=== PATIENT | female | born 1950 | race Caucasian/White ===

== ENCOUNTER 2017-06-21 15:12 | Emergency (ER) | payer MEDICARE, MEDICAID ==
[~2017-06-21] VITALS: Ht 165.1 cm; Wt 99.8 kg
[2017-06-21 15:42] VITALS: BP 196/63
[2017-06-21] MEDS ORDERED: Sodium Chloride 500ML 500 ML IV ONE (15:48)
[2017-06-21 16:45] LABS: BASOPHILS % (AUTO) 0.7 % (0.0-2.0); EOSINOPHILS % (AUTO) 3.2 % (0.0-3.0); HEMATOCRIT 37.9 % (37.0-47.0); HEMOGLOBIN 13.5 G/DL (12.0-16.0); LYMPHOCYTES % (AUTO) 26.3 % (20.0-45.0); MEAN CORPUSCULAR VOLUME 86 FL (80-99); NEUTROPHILS % (AUTO) 61.8 % (45.0-75.0); PLATELET COUNT 223 K/UL (150-450); RED CELL DISTRIBUTION WIDTH 11.2 % (11.6-14.8)
[2017-06-21 16:49] LABS: APPEARANCE,URINE CLOUDY; BILIRUBIN, URINE NEGATIVE (NEGATIVE); GLUCOSE, URINE (UA) NEGATIVE (NEGATIVE); KETONES,URINE NEGATIVE (NEGATIVE); LEUKOCYTE ESTERASE ,URINE 1+ (NEGATIVE); NITRITE,URINE NEGATIVE (NEGATIVE); PH,URINE 7 (4.5-8.0); PROTEIN,URINE 2+ (NEGATIVE); UROBILINOGEN,URINE NORMAL MG/DL (0.0-1.0)
[2017-06-21 16:54] LABS: COLOR,URINE AMBER
[2017-06-21 16:57] LABS: ANION GAP 5 mmol/L (5-15); BLOOD UREA NITROGEN 17 mg/dL (7-18); CALCIUM 10.4 MG/DL (8.5-10.1); CARBON DIOXIDE 30 MMOL/L (21-32); CHLORIDE 107 MMOL/L (98-107); POTASSIUM 3.7 MMOL/L (3.5-5.1); SODIUM 142 MMOL/L (136-145)
[2017-06-21 17:03] LABS: ALANINE AMINOTRANSFERASE 42 U/L (12-78); ALBUMIN 3.5 G/DL (3.4-5.0); ALBUMIN/GLOBULIN RATIO 0.9 (1.0-2.7); ALKALINE PHOSPHATASE 60 U/L (46-116); ASPARTATE AMINO TRANSFERASE 30 U/L (15-37); BILIRUBIN,TOTAL 0.4 MG/DL (0.2-1.0)
[2017-06-21 17:14] LABS: INR 0.9 (0.9-1.1)
[2017-06-21 18:35] VITALS: BP 154/74
[2017-06-21] MEDS ORDERED: PLAVIX75 MG ORAL (18:35)
[2017-06-21] MEDS ORDERED: METOPROLOL SUCC25 MG ORAL (18:35)
[2017-06-21] MEDS ORDERED: PRAVACHOL40 MG ORAL (18:35)
[2017-06-21] MEDS ORDERED: LISINOPRIL-HCT1 EAC2 ORAL (18:35)
[2017-06-21] MEDS ORDERED: ASPIR 8181 MG ORAL (18:35)
--- NOTE | 2017-06-21 18:54 | Emergency Room Report ---
History of Present Illness General Chief Complaint: General Complaint Source: Patient Present Illness HPI Patient is a 67-year-old female presented after increased abdominal pain associated with some diarrhea. Patient recent antibiotic use. Patient was noted to have recent hospitalization at outside facility where she had CT imaging performed. Patient was noted to have increased generalized abdominal pain and distention. She denies any fever. She reports having diarrhea. Allergies: Coded Allergies: No Known Allergies (Unverified , 06/21/17) Patient History Past Medical History: see triage record Reviewed Nursing Documentation: PMH: Agreed; PSxH: Agreed Nursing Documentation-PMH Past Medical History: No History, Except For Hx Cardiac Problems: Yes - Stents, heart attack in 2007 Hx Hypertension: Yes - Knee replacement Hx Pacemaker: No Hx Asthma: No Hx COPD: No Hx Diabetes: No Hx Cancer: No Hx Gastrointestinal Problems: No History Of Psychiatric Problem: No Hx Neurological Problems: No Hx Cerebrovascular Accident: No Hx Seizures: No Review of Systems All Other Systems: negative except mentioned in HPI Physical Exam Vital Signs Date Time Temp Pulse Resp B/P (MAP) Pulse Ox O2 Delivery O2 Flow Rate FiO2 06/21/17 15:19 98.1 73 16 196/63 94 Room Air 98.1 Sp02 EP Interpretation: reviewed, normal General Appearance: normal inspection, well appearing, no apparent distress, alert, GCS 15 Head: atraumatic ENT: normal ENT inspection, hearing grossly normal, normal voice Neck: normal inspection, full range of motion, supple, no bony tend Respiratory: normal inspection, lungs clear, normal breath sounds, no respiratory distress, no retraction, no wheezing Cardiovascular #1: regular rate, rhythm, no edema Gastrointestinal: normal inspection, normal bowel sounds, non tender, soft, no guarding, no hernia Genitourinary: no CVA tenderness, ext genitalia/vag normal, other - slight bleeding from os, no definite lesion seen Musculoskeletal: normal inspection, back normal, normal range of motion Neurologic: normal inspection, alert, oriented x3, responsive, speech normal Psychiatric: normal inspection, judgement/insight normal, mood/affect normal Skin: normal inspection, normal color, no rash Medical Decision Making Diagnostic Impression: Primary Impression: Nephritis Additional Impressions: Abnormal uterine bleeding Cervical cyst Fibroid ER Course Patient presented for abdominal pain. Differential diagnoses included ischemic bowel, appendicitis, perforated viscus, abdominal aortic aneurysm, inferior myocardial infarction, viral gastroenteritis, C. difficile colitis. Because of complexity of patient's case laboratory testing and imaging studies were ordered. Patient was noted to have prior history of recent antibiotic use as well as prior nephrectomy CT of abdomen pelvis showed evidence of nonspecific inflammation of the left kidney with mild left hydronephrosis versus parapelvic cysts there is no stone noted possible uterine fibroids were noted. Patient was noted to have some vaginal bleeding and was advised to have endometrial biopsy performed with MANAGER SQL follow-up. The patient is advised to follow-up with general surgery for evaluation of possible cholecystectomy Labs Test 06/21/17 16:28 White Blood Count 8.0 K/UL (4.8-10.8) Red Blood Count 4.40 M/UL (4.20-5.40) Hemoglobin 13.5 G/DL (12.0-16.0) Hematocrit 37.9 % (37.0-47.0) Mean Corpuscular Volume 86 FL (80-99) Mean Corpuscular Hemoglobin 30.6 PG (27.0-31.0) Mean Corpuscular Hemoglobin Concent 35.5 G/DL (32.0-36.0) Red Cell Distribution Width 11.2 % (11.6-14.8) Platelet Count 223 K/UL (150-450) Mean Platelet Volume 8.9 FL (6.5-10.1) Neutrophils (%) (Auto) 61.8 % (45.0-75.0) Lymphocytes (%) (Auto) 26.3 % (20.0-45.0) Monocytes (%) (Auto) 8.0 % (1.0-10.0) Eosinophils (%) (Auto) 3.2 % (0.0-3.0) Basophils (%) (Auto) 0.7 % (0.0-2.0) Prothrombin Time 9.6 SEC (9.30-11.50) Prothromb Time International Ratio 0.9 (0.9-1.1) Activated Partial Thromboplast Time 23 SEC (23-33) Urine Color Jael Urine Appearance Cloudy Urine pH 7 (4.5-8.0) Urine Specific [place] 1.010 (1.005-1.035) Urine Protein 2+ (NEGATIVE) Urine Glucose (UA) Negative (NEGATIVE) Urine Ketones Negative (NEGATIVE) Urine Occult Blood 5+ (NEGATIVE) Urine Nitrite Negative (NEGATIVE) Urine Bilirubin Negative (NEGATIVE) Urine Ictotest Negative Urine Urobilinogen Normal MG/DL (0.0-1.0) Urine Leukocyte Esterase 1+ (NEGATIVE) Urine RBC Tntc /HPF (0 - 2) Urine WBC 0-2 /HPF (0 - 2) Urine Squamous Epithelial Cells Occasional /LPF Urine Bacteria Few /HPF (NONE) Sodium Level 142 MMOL/L (136-145) Potassium Level 3.7 MMOL/L (3.5-5.1) Chloride Level 107 MMOL/L (98-107) Carbon Dioxide Level 30 MMOL/L (21-32) Anion Gap 5 mmol/L (5-15) Blood Urea Nitrogen 17 mg/dL (7-18) Creatinine 1.0 MG/DL (0.55-1.30) Estimat Glomerular Filtration Rate 55.3 mL/min (>60) Glucose Level 111 MG/DL (74-106) Calcium Level 10.4 MG/DL (8.5-10.1) Total Bilirubin 0.4 MG/DL (0.2-1.0) Aspartate Amino Transf (AST/SGOT) 30 U/L (15-37) Alanine Aminotransferase (ALT/SGPT) 42 U/L (12-78) Alkaline Phosphatase 60 U/L (46-116) Troponin I 0.000 ng/mL (0.000-0.056) Total Protein 7.2 G/DL (6.4-8.2) Albumin 3.5 G/DL (3.4-5.0) Globulin 3.7 g/dL Albumin/Globulin Ratio 0.9 (1.0-2.7) Lipase 135 U/L (73-393) Last Vital Signs Date Time Temp Pulse Resp B/P (MAP) Pulse Ox O2 Delivery O2 Flow Rate FiO2 06/21/17 18:35 98.1 68 14 154/74 100 Room Air 98.1 Status: improved Disposition: HOME, SELF-CARE Condition: Stable Scripts Dicyclomine Hcl* (DICYCLOMINE HCL*) 10 Mg Capsule 10 MG PO QID for pain, #20 CAP Prov: Guillermo Emanuel 06/21/17 Cephalexin* (KEFLEX*) 500 Mg Capsule 500 MG ORAL Q6H, #28 CAP 0 Refills Prov: Guillermo Emanuel 06/21/17 Guillermo Emanuel Jun 21, 2017 18:54
[2017-06-21] MEDS ORDERED: KEFLEX500 MG ORAL (18:56)
[2017-06-21] MEDS ORDERED: DICYCLOMINE HCL10 MG PO (18:57)
[2017-06-21 19:53] VITALS: BP 139/89
[2017-06-21 20:29] VITALS: BP 139/89
--- NOTE | 2017-06-22 09:26 | Diagnostic Imaging Report ---
Indication: Abdominal pain Technique: Spiral acquisitions obtained through the abdomen and pelvis. Patient given oral contrast. No IV contrast utilized, per referring physician request.. Multiplanar reconstructions were generated. Total dose length product 1041.29 mGycm. CTDIvol(s) 19.75 mGy. Dose reduction achieved using automated exposure control Comparison: None Findings: There are colonic diverticula. No evidence of diverticulitis. The appendix is normal. No small bowel distention. No small bowel wall thickening. No free or loculated intraperitoneal air or fluid is evident. Distal esophagus, stomach, duodenum are unremarkable. The gallbladder contains numerous sizable gallstones. The gallbladder wall is not thickened. The liver, bile ducts, pancreas, spleen, adrenals are unremarkable. The right kidney is surgically absent. There are surgical clips in the nephrectomy bed. No evidence of recurrent tumor.. The left kidney demonstrates a 2.6 cm cyst in the interpolar region. There are also multiple small parapelvic cysts. There is considerable perinephric fat stranding. No renal or ureteral calculi, hydronephrosis, or hydroureter. The uterus and ovaries appear unremarkable. No pelvic mass or adenopathy. No retroperitoneal or mesenteric mass or adenopathy. The lung bases demonstrate posterior dependent atelectatic changes. The bones demonstrate degenerative spondylosis changes. Injection granulomata are seen in the right buttock. A lucency through the proximal femoral shaft may be residual from prior surgery. Impression: No definite acute process Cholelithiasis. No findings to suggest acute cholecystitis. Consider further evaluation with ultrasound if clinically suspicious Diverticulosis. No evidence of diverticulitis Evidence of prior right nephrectomy Left renal cortical and parapelvic cysts Other findings as noted, including degenerative spondylosis, basilar pulmonary parenchymal atelectasis This agrees with the preliminary interpretation provided overnight by [facility] teleradiology service. The CT scanner at [facility] is accredited by the [employer] and the scans are performed using protocols designed to limit radiation exposure to as low as reasonably achievable to attain images of sufficient resolution adequate for diagnostic evaluation.
--- NOTE | 2017-06-22 10:37 | Diagnostic Imaging Report ---
Indication: Pelvic pain and vaginal bleeding Technique: Transabdominal and transvaginal images Comparison: CT scan of earlier the same day Findings: Exam is limited due to patient body habitus. Uterus measures 9.5 cm length by 4.2 cm AP. It is retroverted. There are one or more small nabothian cysts in the cervix. There is a 13 mm uterine fundal fibroid. Neither ovary could be demonstrated Impression: Cervical nabothian cyst and small fundal fibroid Nonvisualized ovaries, presumably atrophic
--- NOTE | 2017-06-25 19:31 | Cardiology Report ---
APPROVED REPORT EKG Measurement Heart [id number] Normal sinus rhythm Low voltage QRS Borderline ECG
== END 2017-06-21 20:30 | disposition home or self-care (01) ==
LOC: EMR 15:56
DX: N05.9 Unspecified nephritic syndrome with unspecified morphologic changes (principal); N93.9 Abnormal uterine and vaginal bleeding, unspecified; N88.8 Other specified noninflammatory disorders of cervix uteri; D25.9 Leiomyoma of uterus, unspecified; K80.20 Calculus of gallbladder without cholecystitis without obstruction; Z90.5 Acquired absence of kidney; Z96.659 Presence of unspecified artificial knee joint
CPT/HCPCS: 36415; 74176; 76830; 76856; 80053; 81003; 82962; 83690; 84484; 85025; 85610; 85730; 86850; 86900; 86901; 93005; 96374; 99284

== ENCOUNTER 2019-05-08 14:25 | Emergency (ER) | payer MEDICAID, MEDICARE ==
[~2019-05-08] VITALS: Ht 165.1 cm; Wt 90.7 kg
[~2019-05-08 14:25] MED LIST: ASPIR 8181 MG ORAL; DICYCLOMINE HCL10 MG PO; KEFLEX500 MG ORAL; LISINOPRIL-HCT1 EAC2 ORAL; METOPROLOL SUCC25 MG ORAL; PLAVIX75 MG ORAL; PRAVACHOL40 MG ORAL
[2019-05-08 14:30] VITALS: BP 177/81
--- NOTE | 2019-05-08 14:30 | NUR ---
ED Nurse Note: Patient walked in to ER with daughter due to chest pain and abdominal pain and nausea for 2 days. per pt, she was on ATB for 10 days and stopped hypertensive and blood thinner medications. pt aao x4 and ambulatory. cooperative but restless and anxious. skin clean and intact. pt is in gown and on cardiac monitor technician.
--- NOTE | 2019-05-08 14:45 | Emergency Room Report ---
History of Present Illness General Chief Complaint: Chest pain Source: Patient Present Illness HPI Patient is a 69-year-old female presents after increased chest discomfort. She reports having discontinued her medications 2 days ago. She had previously been on multiple medications which included Plavix and aspirin as well as JOHN PAUL inhibitor and cholesterol medication. Previous history of stent placement. Allergies: Coded Allergies: No Known Allergies (Unverified , 06/21/17) Patient History Past Medical History: see triage record Reviewed Nursing Documentation: PMH: Agreed; PSxH: Agreed Nursing Documentation-PMH Hx Cardiac Problems: Yes - Stents, heart attack in 2007 Hx Hypertension: Yes - Knee replacement Hx Pacemaker: No Hx Asthma: No Hx COPD: No Hx Diabetes: No Hx Cancer: No Hx Gastrointestinal Problems: No Hx Neurological Problems: No Hx Cerebrovascular Accident: No Hx Seizures: No Review of Systems All Other Systems: negative except mentioned in HPI Physical Exam Sp02 EP Interpretation: reviewed, normal General Appearance: normal inspection, well appearing, no apparent distress, alert, GCS 15, non-toxic, obese, Chronically Ill Head: atraumatic ENT: normal ENT inspection, hearing grossly normal, normal voice Neck: normal inspection, full range of motion, supple, no bony tend Respiratory: normal inspection, lungs clear, normal breath sounds, no respiratory distress, no retraction, no wheezing Cardiovascular #1: regular rate, rhythm, no edema Gastrointestinal: normal inspection, normal bowel sounds, non tender, soft, no guarding, no hernia Genitourinary: no CVA tenderness Musculoskeletal: normal inspection, back normal, normal range of motion Neurologic: alert, oriented x3, responsive, speech normal, normal inspection Psychiatric: normal inspection, judgement/insight normal, mood/affect normal Medical Decision Making Diagnostic Impression: Primary Impression: Nonspecific chest pain Additional Impression: Nephritis ER Course Presented for chest pain. Differential diagnosis included but was not limited to acute coronary syndrome, pulmonary embolism, pneumonia, aortic dissection, shingles, pneumothorax, aortic dissection, esophageal rupture, pericarditis. Patient was given aspirin as well as Plavix in the emergency department as well as antihypertensive medications. CT angiogram read by radiology showed no evidence of acute pulmonary embolism or aortic dissection. See radiology report for full details Patient's laboratory testing was unremarkable and showed no evidence of elevated troponin despite prolonged period of chest pain.. Patient appears to be stable for outpatient management and follow-up with her ramp service agent. Is advised to return if worse. The patient is advised to follow up with primary care doctor in 1-2 days. Patient is advised to return if any worsening condition or if any changes in status that are concerning. This report is dictated with [employer] docking saw operator software which may occasionally lead to discrepancies related to use of this software. Labs Test 05/08/19 14:50 05/08/19 15:30 White Blood Count 7.8 K/UL (4.8-10.8) Red Blood Count 4.56 M/UL (4.20-5.40) Hemoglobin 13.4 G/DL (12.0-16.0) Hematocrit 38.2 % (37.0-47.0) Mean Corpuscular Volume 84 FL (80-99) Mean Corpuscular Hemoglobin 29.4 PG (27.0-31.0) Mean Corpuscular Hemoglobin Concent 35.1 G/DL (32.0-36.0) Red Cell Distribution Width 11.2 % (11.6-14.8) Platelet Count 265 K/UL (150-450) Mean Platelet Volume 7.4 FL (6.5-10.1) Neutrophils (%) (Auto) 64.9 % (45.0-75.0) Lymphocytes (%) (Auto) 26.9 % (20.0-45.0) Monocytes (%) (Auto) 5.7 % (1.0-10.0) Eosinophils (%) (Auto) 1.5 % (0.0-3.0) Basophils (%) (Auto) 0.9 % (0.0-2.0) Prothrombin Time 9.9 SEC (9.30-11.50) Prothromb Time International Ratio 0.9 (0.9-1.1) Activated Partial Thromboplast Time 25 SEC (23-33) D-Dimer 0.85 mg/L FEU (0.00-0.49) Sodium Level 144 MMOL/L (136-145) Potassium Level 3.8 MMOL/L (3.5-5.1) Chloride Level 109 MMOL/L (98-107) Carbon Dioxide Level 25 MMOL/L (21-32) Anion Gap 10 mmol/L (5-15) Blood Urea Nitrogen 16 mg/dL (7-18) Creatinine 1.0 MG/DL (0.55-1.30) Estimat Glomerular Filtration Rate 55.0 mL/min (>60) Glucose Level 87 MG/DL (74-106) Calcium Level 10.3 MG/DL (8.5-10.1) Total Bilirubin 0.5 MG/DL (0.2-1.0) Aspartate Amino Transf (AST/SGOT) 30 U/L (15-37) Alanine Aminotransferase (ALT/SGPT) 32 U/L (12-78) Alkaline Phosphatase 70 U/L (46-116) Troponin I 0.001 ng/mL (0.000-0.056) Pro-B-Type Natriuretic Peptide 742 pg/mL (0-125) Total Protein 7.2 G/DL (6.4-8.2) Albumin 3.4 G/DL (3.4-5.0) Globulin 3.8 g/dL Albumin/Globulin Ratio 0.9 (1.0-2.7) Lipase 136 U/L (73-393) Urine Opiates Screen Negative (NEGATIVE) Urine Barbiturates Screen Negative (NEGATIVE) Phencyclidine (PCP) Screen Negative (NEGATIVE) Urine Amphetamines Screen Negative (NEGATIVE) Urine Benzodiazepines Screen Negative (NEGATIVE) Urine Cocaine Screen Negative (NEGATIVE) Urine Marijuana (THC) Screen Negative (NEGATIVE) EKG Diagnostic Results Rate: normal Rhythm: NSR - 79 ST Segments: no acute changes Status: improved Disposition: HOME, SELF-CARE Condition: Stable Guillermo Emanuel MD May 08, 2019 14:45
[2019-05-08] MEDS ORDERED: Enalaprilat 2.5mg/2ml Inj IV ONE (15:00)
[2019-05-08] MEDS ORDERED: Aspirin Baby 81mg ORAL ONE (15:00)
[2019-05-08 15:04] LABS: BASOPHILS % (AUTO) 0.9 % (0.0-2.0); EOSINOPHILS % (AUTO) 1.5 % (0.0-3.0); HEMATOCRIT 38.2 % (37.0-47.0); HEMOGLOBIN 13.4 G/DL (12.0-16.0); LYMPHOCYTES % (AUTO) 26.9 % (20.0-45.0); MEAN CORPUSCULAR VOLUME 84 FL (80-99); MONOCYTES % (AUTO) 5.7 % (1.0-10.0); NEUTROPHILS % (AUTO) 64.9 % (45.0-75.0); PLATELET COUNT 265 K/UL (150-450); RED BLOOD COUNT 4.56 M/UL (4.20-5.40); RED CELL DISTRIBUTION WIDTH 11.2 % (11.6-14.8); WHITE BLOOD COUNT 7.8 K/UL (4.8-10.8)
[2019-05-08 15:16] LABS: INR 0.9 (0.9-1.1)
[2019-05-08 15:18] LABS: ANION GAP 10 mmol/L (5-15); BLOOD UREA NITROGEN 16 mg/dL (7-18); CALCIUM 10.3 MG/DL (8.5-10.1); CARBON DIOXIDE 25 MMOL/L (21-32); CHLORIDE 109 MMOL/L (98-107); POTASSIUM 3.8 MMOL/L (3.5-5.1); SODIUM 144 MMOL/L (136-145)
--- NOTE | 2019-05-08 15:30 | Diagnostic Imaging Report ---
Indication: Dyspnea Comparison: None A single view chest radiograph was obtained. Findings: No definite infiltrate or pulmonary vascular congestion identified. The heart is enlarged. The aorta is mildly enlarged consistent with atherosclerotic vascular disease. The bones are osteopenic. Impression: No acute disease
[2019-05-08 15:39] LABS: ALANINE AMINOTRANSFERASE 32 U/L (12-78); ALBUMIN 3.4 G/DL (3.4-5.0); ALBUMIN/GLOBULIN RATIO 0.9 (1.0-2.7); ALKALINE PHOSPHATASE 70 U/L (46-116); ASPARTATE AMINO TRANSFERASE 30 U/L (15-37); BILIRUBIN,TOTAL 0.5 MG/DL (0.2-1.0)
[2019-05-08] MEDS ORDERED: Omnipaque 350 100ml vial INJ PRN (15:45)
--- NOTE | 2019-05-08 16:12 | NUR ---
ED Nurse Note: pt came back from CT scan in stable condition.
--- NOTE | 2019-05-08 16:36 | Diagnostic Imaging Report ---
Indication: Chest pain Technique: Continuous helical transaxial imaging of the chest was obtained from the thoracic inlet to the upper abdomen during rapid intravenous contrast administration. Arterial phase of enhancement obtained. Coronal 2-D reformats were also obtained and maximum intensity projection images in multiple planes. Study obtained in a Siemens sensation [address] Automatic Exposure Control was utilized. Total Dose length Product (DLP): 95.[address] Dose Index Volume (CTDIvol): 162.5 mGy Comparison: None Findings: The pulmonary artery is well opacified and shows no filling defects. There is no adenopathy, pleural or pericardial effusions are identified. There is no aortic dissection or aneurysm identified within the chest. There are small paraseptal blebs demonstrated at the lung apices. No consolidation, nodules or interstitial disease identified. Visualized part of the upper abdomen demonstrates a distended gallbladder with multiple gallstones. There are surgical clips in the right renal fossa and absence of the right kidney. There is a 3.4 cm cyst in the posterior part of the left kidney. There is left perinephric stranding which is nonspecific. Mild vertebral endplate osteophytes noted throughout the thoracic and visualized cervical spine. IMPRESSION: No evidence of pulmonary embolus, aortic dissection or aneurysm. Cholelithiasis. Left renal cyst Perinephric stranding left kidney nonspecific. Status post right nephrectomy. Degenerative changes of the spine The CT scanner at [facility] is accredited by the [employer] and the scans are performed using dose optimization techniques as appropriate to a performed exam including Automatic Exposure control.
--- NOTE | 2019-05-08 17:07 | NUR ---
ED Nurse Note: ERMD at bedside explaining lab results.
--- NOTE | 2019-05-08 18:23 | NUR ---
ED Nurse Note: pt and ERMD agreed with discharging and following up with belt sewer.
[2019-05-08 18:43] VITALS: BP 144/71
--- NOTE | 2019-05-08 18:44 | NUR ---
ED Nurse Note: Pt cleared by health care Provider for discharge. DC instructions/prescription was given and explained to pt and verbalized understanding of teachings. All medical deviecs such as ID band removed. Pt is AAO x4, ambulatory and left with all personal belongings. Patient's daughter picked pt up to home.
== END 2019-05-08 18:44 | disposition home or self-care (01) ==
LOC: EMR 15:29 → CANBEDREQ 18:06 → EMR 18:44
DX: R07.9 Chest pain, unspecified (principal); Z95.5 Presence of coronary angioplasty implant and graft; I25.2 Old myocardial infarction; Z96.659 Presence of unspecified artificial knee joint; E66.9 Obesity, unspecified; Z68.33 Body mass index [BMI] 33.0-33.9, adult
CPT/HCPCS: 36415; 71045; 71275; 80053; 80307; 83690; 83880; 84484; 85025; 85379; 85610; 85730; 93005; 96374; 99284; Q9967